=== PATIENT | female | born 1980 | race Hispanic/Latino ===

== ENCOUNTER → 2017-08-20 | Outpatient (CLI) | payer OTHER, BC ==
[~2017-08-20] MED LIST: BUSP15 PO; CLON1TAB4 PO; PANT40TA25 PO
== END | disposition home or self-care (01) ==
LOC: RAH 15:14
PROVIDERS: ATTEND Internal Medicine Gastroenterology
DX: M25.552 Pain in left hip (principal)
CPT/HCPCS: 73502

== ENCOUNTER 2017-09-18 06:28 | Day surgery (SDC) | payer OTHER, BC ==
[~2017-09-18] VITALS: Ht 162.6 cm; Wt 88.0 kg
[~2017-09-18 06:28] MED LIST changes: -CLON1TAB4 PO
[2017-09-18] MEDS ORDERED: SODIUM CHLORIDE 0.9% 1000ML 1,000 ML IV ONE (06:48)
[2017-09-18 06:55] VITALS: BP 112/70
[2017-09-18] MEDS ORDERED: CLON1TAB4 PO (07:03)
[2017-09-18] MEDS ORDERED: PROPOFOL 10 MG/ML 20ML VIAL IV ONE (08:03)
[2017-09-18 08:21] VITALS: BP 97/61
== END 2017-09-18 08:45 | disposition home or self-care (01) ==
LOC: DAH 06:28 → ENDO 06:28
PROVIDERS: ATTEND Internal Medicine Gastroenterology
DX: K63.5 Polyp of colon (principal); K21.9 Gastro-esophageal reflux disease without esophagitis; Z68.38 Body mass index [BMI] 38.0-38.9, adult; F41.9 Anxiety disorder, unspecified
CPT/HCPCS: 36415; 45385; 84703; 88305; A4606; J2704; J7030